=== PATIENT | male | born 1950 | race Caucasian/White ===

== ENCOUNTER → 2017-10-13 | Outpatient (CLI) | payer BC, OTHER ==
[~2017-10-13] MED LIST: NIAC500T2 PO; ROSU20TA PO; URO10 PO
== END | disposition home or self-care (01) ==
LOC: RAD 14:47
PROVIDERS: ATTEND Internal Medicine Critical Care Medicine
DX: I73.9 Peripheral vascular disease, unspecified (principal)
CPT/HCPCS: 71046

== ENCOUNTER → 2018-08-31 | Outpatient (CLI) | payer BC | END | disposition home or self-care (01) | LOC: RAD 07:35 | DX: R05 Cough (principal); R09.02 Hypoxemia; R06.02 Shortness of breath | CPT/HCPCS: 71046 ==

== ENCOUNTER → 2022-10-27 | Outpatient (CLI) | payer BC, MEDICARE ==
[~2022-10-27] MED LIST changes: -ROSU20TA PO; +ROSU20TA2 PO
== END | disposition home or self-care (01) ==
LOC: RAD 12:32
PROVIDERS: ATTEND Radiology Diagnostic Radiology
DX: R76.11 Nonspecific reaction to tuberculin skin test without active tuberculosis (principal); Z98.890 Other specified postprocedural states
CPT/HCPCS: 71045